=== PATIENT | male | born 1965 | race African-American/Black ===

== ENCOUNTER 2020-01-06 09:42 | Emergency (ER) | payer BC, SELFPAY ==
[2020-01-06 09:52] VITALS: BP 153/82; PULSE 80; RESP 16; TEMP 36.8; O2SAT 98
--- NOTE | 2020-01-06 10:11 | ED.URI ---
HPI - URI/Sore Throat General Chief Complaint: Upper Respiratory Infection Stated Complaint: Sore Throat/Ear pain/Phlegm Time Seen by Provider: 01/06/20 10:11 Source: patient and RN notes reviewed Mode of arrival: ambulatory Limitations: no limitations History of Present Illness HPI Narrative: 54-year-old male [facility] complaints of sore throat,fullness to his ears, sinus congestion and pressure, cough for the past 2 weeks. Patient states that he initially though it was allergies, patient has been taking Zyrtec, Flonase and singulair but no improvement. Patient states that he initially had some low grade fevers but denies any fever in the past few days. Patient states that his throat has progressively increased in soreness, he is coughing up a lot of white thick mucous. Patient denies any shortness of breath or any wheezing, lungs clear to auscultation, SAO2 98% on room air. MD elicited complaint: cough, sore throat, rhinorrhea, nasal congestion, sinus pain (pressure with headache frontal) and other (ears feel full) Pertinent past history: seasonal allergies and other Onset (ago): week(s) (2) Consistency: constant and progressively worsening (sore throat) Severity: moderate Pain scale (0-10): 5 Description of mucous: clear and other (thick) Able to tolerate fluids by mouth: Yes Exacerbating factors: swallowing, leaning forward and other (zyrtec, singulair, tylenol) Relieving factors: nothing Associated symptoms: headache, rhinorrhea, nasal congestion and sore throat Treatments prior to arrival: other (flonase, zyrtec, singulair) Related Data Home Medications Medication Instructions Recorded Confirmed Ambien 10 mg HS PRN 11/03/19 12/10/19 amlodipine 10 mg DAILY 11/03/19 12/10/19 pravastatin 40 mg DAILY 11/03/19 12/10/19 montelukast 10 mg PO DAILY 01/06/20 01/06/20 pravastatin 40 mg PO DAILY 01/06/20 01/06/20 Allergies Allergy/AdvReac Type Severity Reaction Status Date / Time MORTEZA Inhibitors Allergy Mild Cough Verified 01/06/20 09:59 [email or web address] Allergy Mild Swelling Verified 01/06/20 09:59 Review of Systems Review of Systems: Narrative: CONSTITUTIONAL: reports some initial low grade fevers none presently fever, no chills, or sweats. EYES: Denies visual changes, redness, or discharge. ENT: positive rhinorrhea, congestion,positive sore throat, fullness to ears CARDIOVASCULAR: Denies chest pain, palpitations, or edema. RESPIRATORY: Positive cough denies dyspnea. GASTROINTESTINAL: Denies abdominal pain, nausea, vomiting, or diarrhea. GENITOURINARY: Denies dysuria or hematuria. SKIN: Denies rash or itching. MUSCULOSKELETAL: Denies back pain, joint pain, or myalgia. NEUROLOGIC: positive headache, numbness, or weakness. PSYCHIATRIC: Denies anxiety or depression. All systems reviewed & are unremarkable except as noted in HPI and below PMFSH Past Medical History Medical History (Updated 01/13/20 @ 08:20 by Cynthia Caputo NP) HTN (hypertension) Hyperlipidemia Insomnia Seasonal allergies Family History Family History Mother Patient's mother is in good health Social History Social History Smoking status: Never smoker Alcohol intake: never Substance use: never Substance use type: does not use Gender identity (if verbalized by the patient): Male Comments At time of signature, agree with nursing past medical, social history. There is no relevant family history pertinent to the presenting complaint Exam Narrative: Exam Narrative: GENERAL: Well-appearing, well-nourished, and in no acute distress. HEAD: Normocephalic, atraumatic. EYES: PERRLA and EOMI. ENT: Nares red clear rhinorrhea no epistaxis. Mucous membranes moist.TM's normal with dull light reflex, throat red with no lesions or tonsil swelling, post nasal drainage present NECK: Supple.no lymphadenopathy CHEST: Clear to auscultat
== END 2020-01-06 10:38 | disposition home or self-care (01) ==
PROVIDERS: Emergency Provider Registered Nurse; PCP Family Medicine
DX: J01.10 Acute frontal sinusitis, unspecified (principal); J02.9 Acute pharyngitis, unspecified; I10 Essential (primary) hypertension
CPT/HCPCS: 87081; 87880; 99213; G0463

== ENCOUNTER 2020-10-30 13:11 | Emergency (ER) | payer BC, SELFPAY ==
[2020-10-30 13:21] VITALS: BP 146/77; PULSE 74; RESP 18; TEMP 36.4; O2SAT 98
--- NOTE | 2020-10-30 13:25 | ED.GENADULT ---
HPI - General Adult General Chief complaint: Ear Stated complaint: ear ache Time Seen by Provider: 10/30/20 13:25 Source: patient Mode of arrival: ambulatory Limitations: no limitations History of Present Illness HPI narrative: 55-year-old male patient presents to the [facility] with complaints of bilateral ear fullness and ringing for the past 2 to 3 days. Patient states that he popped his ears the other day and since then has been having a little been ringing feels like his ears are full. Denies any pain. Denies any discharge coming from the ears. Denies any stuffy nose, runny nose. Denies any fevers, body aches or chills. Related Data Allergies Allergy/AdvReac Type Severity Reaction Status Date / Time MORTEZA Inhibitors Allergy Mild Cough Verified 08/31/20 09:35 [email or web address] Allergy Mild Swelling Verified 08/31/20 09:35 Review of Systems Review of Systems: Narrative: CONSTITUTIONAL: Denies fever, chills, or sweats. EYES: Denies visual changes, redness, or discharge. ENT: Denies rhinorrhea, congestion, sore throat, positive bilateral otalgia. CARDIOVASCULAR: Denies chest pain, palpitations, or edema. RESPIRATORY: Denies cough or dyspnea. GASTROINTESTINAL: Denies abdominal pain, nausea, vomiting, or diarrhea. GENITOURINARY: Denies dysuria or hematuria. SKIN: Denies rash or itching. MUSCULOSKELETAL: Denies back pain, joint pain, or myalgia. NEUROLOGIC: Denies headache, numbness, or weakness. PSYCHIATRIC: Denies anxiety or depression. [facility] Past Medical History Medical History Allergic rhinitis HTN (hypertension) Hyperlipidemia Insomnia Seasonal allergies Family History Family History Mother Patient's mother is in good health Social History Social History Smoking status: Never smoker Alcohol intake: never Substance use: never Substance use type: does not use Gender identity (if verbalized by the patient): Male Comments At the time of my signature I agree with nursing past medical history, surgical, social, and family history. There is no relevant family history pertinent to the presenting complaint. Exam Narrative: Exam Narrative: GENERAL: Well-appearing, well-nourished, and in no acute distress. HEAD: Normocephalic, atraumatic. EYES: PERRLA and EOMI. ENT: Nares clear, no rhinorrhea or epistaxis. Mucous membranes moist. Bilateral TMs do appear slightly cloudy and possibly some fluid behind them. The bilateral canals are clear no erythema or foreign bodies in the canal. Posterior pharynx with no erythema, tonsillectomy, exudates or lesions present. NECK: Supple. No lymphadenopathy CHEST: Clear to auscultation. No respiratory distress. HEART: Regular rate and rhythm. No murmur heard. Normal peripheral pulses. ABDOMEN: Soft, nontender, nondistended, normal active bowel sounds. EXTREMITIES: Normal range of motion. No edema. SKIN: Warm, dry, no rash. NEURO: No focal deficits. Alert and oriented x3. Course Vital Signs Vital signs: Vital Signs Temperature 36.4 C L 10/30/20 13:21 Pulse Rate 74 10/30/20 13:21 Respiratory Rate 18 10/30/20 13:21 Blood Pressure 146/77 H 10/30/20 13:21 Pulse Oximetry 98 10/30/20 13:21 Temperature 36.4 C L 10/30/20 13:21 Pulse Rate 74 10/30/20 13:21 Respiratory Rate 18 10/30/20 13:21 Blood Pressure 146/77 H 10/30/20 13:21 Pulse Oximetry 98 10/30/20 13:21 Vital signs reviewed. The patient has been informed that they may have pre-hypertension or Hypertension based on a BP reading in the department. I recommend that the patient call the primary care provider listed on their discharge instructions or a physician of their choice this week to arrange follow up for further evaluation of possible pre-hypertension or Hypertension Medical Decision Making Differential Diagnosis Differential Di
== END 2020-10-30 13:34 | disposition home or self-care (01) ==
PROVIDERS: Emergency Provider Nurse Practitioner Family; PCP Family Medicine
DX: H73.893 Other specified disorders of tympanic membrane, bilateral (principal); I10 Essential (primary) hypertension; E78.5 Hyperlipidemia, unspecified
CPT/HCPCS: 99213; G0463

== ENCOUNTER 2021-07-25 00:27 | Day surgery (SDC) | payer BC, SELFPAY ==
[2021-07-13 13:58] VITALS: BMI 39.3
--- NOTE | 2021-07-24 16:34 | PM.HPGS ---
History of Present Illness History of Present Illness Consent: Risks, benefits, and alternatives have been discussed and questions answered. Patient agrees to proceed with procedure. Chief complaint: neoplasm screening Z12.11 Narrative: this is a 56-year-old male referred for colon cancer screening. his last colonoscopy was 10 years ago Review of Systems Review of Systems: All systems reviewed & are unremarkable except as noted in HPI and below PMFSH Past Medical History Medical History Allergic rhinitis HTN (hypertension) Hyperlipidemia Insomnia Seasonal allergies Family History Family History Mother Patient's mother is in good health Social History Social History Smoking status: Never smoker Second hand tobacco smoke exposure: No Alcohol intake: never Substance use: never Substance use type: does not use Living arrangements: alone Gender identity (if verbalized by the patient): Male Spiritual care concerns: No Meds Home Medications and Allergies Home Medications Medication Instructions Recorded Confirmed Type aspirin 81 mg tablet,delayed 81 mg PO DAILY #30 tablet 01/27/20 07/25/21 Rx release triamcinolone acetonide 0.1 % 1 applic TOPICAL DAILY PRN #80 g 08/31/20 07/25/21 Rx topical ointment pravastatin 40 mg tablet 40 mg PO DAILY #90 tablet 02/12/21 07/25/21 Rx amlodipine 10 mg tablet 10 mg PO DAILY #90 tablet 04/20/21 07/13/21 Rx zolpidem 10 mg tablet 10 mg PO .qhs #90 tablet 06/08/21 07/25/21 Rx losartan 50 mg tablet 50 mg PO DAILY #90 tablet 07/05/21 07/13/21 Rx cetirizine [Zyrtec] 10 mg PO DAILY PRN 07/13/21 07/25/21 History Allergies Allergy/AdvReac Type Severity Reaction Status Date / Time MORTEZA Inhibitors Allergy Mild Cough Verified 07/25/21 09:18 Exam Resp: Auscultation: clear to auscultation bilaterally Cardio: Rate: regular rate Rhythm: regular rhythm GI: GI Palp: Yes Soft to palpation and No Tenderness to palpation present (GI) Assessment and Plan Assessment and plan (1) Colon cancer screening: Code(s): Z12.11 - Encounter for screening for malignant neoplasm of colon Status: Acute Assessment and Plan: Colonoscopy with possible biopsy or polypectomy or cautery or injection of substances.
[2021-07-25 09:20] VITALS: BP 161/89; PULSE 73; RESP 18; TEMP 36.4; O2SAT 100; BMI 40.4
[2021-07-25] MEDS: LACTATED RINGERS 1,000 ML 150 ML IV CONT (09:30)
--- NOTE | 2021-07-25 09:32 | WPDANESEPPF ---
Anes - Initial Pre Proc Eval Procedure: Operation Date: 07/25/21 10:00 Proposed Procedures p Screening Colonoscopy - Bert Guardado MD Date/Time: 07/25/21 09:32 Surgeon: Bert Guardado MD Pre Op Diagnosis: neoplasm screening Z12.11 Patient Data Age: 56 Gender: M Height: 1.8 m Weight: 131.4 kg Last Vital Signs Temp 36.4 C L 07/25/21 09:20 Pulse 73 07/25/21 09:20 Resp 18 07/25/21 09:20 BP 161/89 H 07/25/21 09:20 Pulse Ox 100 07/25/21 09:20 Allergies Allergy/AdvReac Type Severity Reaction Status Date / Time MORTEZA Inhibitors Allergy Mild Cough Verified 07/25/21 09:18 Home Medications Medication Instructions Recorded Confirmed Type aspirin 81 mg tablet,delayed 81 mg PO DAILY #30 tablet 01/27/20 07/25/21 Rx release triamcinolone acetonide 0.1 % 1 applic TOPICAL DAILY PRN #80 g 08/31/20 07/25/21 Rx topical ointment pravastatin 40 mg tablet 40 mg PO DAILY #90 tablet 02/12/21 07/25/21 Rx amlodipine 10 mg tablet 10 mg PO DAILY #90 tablet 04/20/21 07/13/21 Rx zolpidem 10 mg tablet 10 mg PO .qhs #90 tablet 06/08/21 07/25/21 Rx losartan 50 mg tablet 50 mg PO DAILY #90 tablet 07/05/21 07/13/21 Rx cetirizine [Zyrtec] 10 mg PO DAILY PRN 07/13/21 07/25/21 History Patient hx anesthesia problems: none Family hx anesthesia problems: none PMFSH Past Medical History Medical History Allergic rhinitis HTN (hypertension) Hyperlipidemia Insomnia Seasonal allergies Family History Family History Mother Patient's mother is in good health Social History Social History Smoking status: Never smoker Second hand tobacco smoke exposure: No Alcohol intake: never Substance use: never Substance use type: does not use Living arrangements: alone Gender identity (if verbalized by the patient): Male Spiritual care concerns: No Anes - Eval Final PreProcedure Day of Procedure 07/25/21 09:32 Patient weight: morbidly obese Heart: regular rate and rhythm Lungs: clear to auscultation Airway: Mallampati scale class II Neurological: alert and oriented Last oral intake: >/= 8 hours ASA classification: III Emergent: no Anesthetic plan: proceed Anesthesia type and monitoring: general GIVS and standard monitoring Informed Consent: The patient's anesthetic plan and its attendant risks and benefits were discussed with the patient/family/POA. Questions were solicited and answers provided to the satisfaction of the patient/family/POA.
[2021-07-25 10:12] VITALS: BP 112/65; PULSE 69; RESP 29; O2SAT 100
[2021-07-25 10:22] VITALS: BP 111/73; PULSE 70; RESP 22; O2SAT 98
[2021-07-25 10:32] VITALS: BP 124/77; PULSE 70; RESP 22; O2SAT 100
== END 2021-07-25 10:40 | disposition home or self-care (01) ==
PROVIDERS: PCP Family Medicine; Visit Provider Internal Medicine Gastroenterology
PROC: 0DJD8ZZ Inspection of Lower Intestinal Tract, Via Natural or Artificial Opening Endoscopic (ICD-10-PCS; CPT 45378; principal; 2021-07-25 10:00)
DX: Z12.11 Encounter for screening for malignant neoplasm of colon (principal); I10 Essential (primary) hypertension; E78.5 Hyperlipidemia, unspecified; Z79.82 Long term (current) use of aspirin; E66.01 Morbid (severe) obesity due to excess calories; Z68.41 Body mass index [BMI] 40.0-44.9, adult
CPT/HCPCS: 45378; J2704; J7120

== ENCOUNTER 2023-09-09 00:17 | Emergency (ER) | payer BC, OTHER, SELFPAY ==
[2023-09-09 00:22] VITALS: BP 186/90; PULSE 104; RESP 16; TEMP 37.2; O2SAT 98
[2023-09-09] MEDS: methylPREDNISolone SOD SUCC 125 MG VIAL IV PUSH (00:53)
[2023-09-09] MEDS: FAMOTIDINE 20 MG/2 ML VIAL IV PUSH (00:53)
[2023-09-09] MEDS: diphenhydrAMINE HCl INJ 50 MG/ML VIAL IV PUSH (00:54)
--- NOTE | 2023-09-09 01:00 | ED.GENADULT ---
HPI - General Adult General Chief complaint: Allergic Reaction Stated complaint: allergic reaction, throat swelling Time Seen by Provider: 09/09/23 00:42 History of Present Illness HPI narrative: Patient is a 58-year-old gentleman who presents the emergency department with chief complaint of throat swelling. Patient reports for several days has had a feeling as though his normal bit of congestion patient states this evening he noticed a swelling sensation in the back of his throat patient reports he is not on an MORTEZA inhibitor does report that he has itching present on his feet. Related Data Home Medications Medication Instructions Recorded Confirmed cetirizine 10 mg tablet (Zyrtec) 10 mg PO DAILY PRN Allergic 07/13/21 02/27/23 Symptoms Allergies Allergy/AdvReac Type Severity Reaction Status Date / Time MORTEZA Inhibitors Allergy Mild Cough Verified 02/27/23 08:50 Review of Systems Review of Systems: A 10 system review of systems was completed on the patient and is negative except for what is stated in the HPI. Nursing and ancillary documentation was reviewed. [facility] Past Medical History Medical History Allergic rhinitis HTN (hypertension) Hyperlipidemia Insomnia Seasonal allergies Family History Family History Mother Patient's mother is in good health Social History Social History Smoking status: Never smoker Second hand tobacco smoke exposure: No Alcohol intake: never Substance use: never Substance use type: does not use Living arrangements: with family Occupation/Education: occupation Gender identity (if verbalized by the patient): Male Sexual Orientation (if Verbalized by the Patient): Straight or Heterosexual Spiritual care concerns: No Exam Narrative: GENERAL: Well-appearing, well-nourished, and in no acute distress. HEAD: Normocephalic, atraumatic. EYES: PERRLA and EOMI. ENT: Nares clear, no rhinorrhea or epistaxis. Mucous membranes moist. No stridor no angioedema NECK: Supple. CHEST: Clear to auscultation. No respiratory distress. No wheezing HEART: Regular rate and rhythm. No murmur heard. Normal peripheral pulses. ABDOMEN: Soft, nontender, nondistended, normal active bowel sounds. EXTREMITIES: Normal range of motion. No edema. SKIN: Warm, dry, no rash. No urticaria NEURO: No focal deficits. Alert and oriented x3. PSYCH: Normal mood and affect. Course Vital Signs Vital signs: Vital Signs Temperature 37.2 C 09/09/23 00:22 Pulse Rate 104 H 09/09/23 00:22 Respiratory Rate 16 09/09/23 00:22 Blood Pressure 186/90 H 09/09/23 00:22 Pulse Oximetry 98 09/09/23 00:22 Oxygen Delivery Room Air 09/09/23 00:22 Temperature 37.2 C 09/09/23 00:22 Pulse Rate 104 H 09/09/23 00:22 Respiratory Rate 16 09/09/23 00:22 Blood Pressure 186/90 H 09/09/23 00:22 Pulse Oximetry 98 09/09/23 00:22 Oxygen Delivery Room Air 09/09/23 00:22 Medical Decision Making Vital Signs Vital Signs: Vital Signs Temperature 37.2 C 09/09/23 00:22 Pulse Rate 104 H 09/09/23 00:22 Respiratory Rate 16 09/09/23 00:22 Blood Pressure 186/90 H 09/09/23 00:22 Pulse Oximetry 98 09/09/23 00:22 Oxygen Delivery Room Air 09/09/23 00:22 Temperature 37.2 C 09/09/23 00:22 Pulse Rate 104 H 09/09/23 00:22 Respiratory Rate 16 09/09/23 00:22 Blood Pressure 186/90 H 09/09/23 00:22 Pulse Oximetry 98 09/09/23 00:22 Oxygen Delivery Room Air 09/09/23 00:22 Discharge Plan Discharge Clinical Impression: Allergic reaction Patient Disposition: Home, Self-Care Condition: Stable Instructions: Antibiotic Form, Allergies (ED) Prescriptions: New prednisone 20 mg tablet 40 mg PO DAILY 5 Days Qty: 10 0RF No Action triamc
[2023-09-09 02:29] VITALS: BP 174/86; PULSE 92; RESP 15; O2SAT 99
== END 2023-09-09 02:29 | disposition home or self-care (01) ==
PROVIDERS: Emergency Provider Emergency Medicine; PCP Family Medicine
DX: T78.40XA Allergy, unspecified, initial encounter (principal); I10 Essential (primary) hypertension; E78.5 Hyperlipidemia, unspecified; X58.XXXA Exposure to other specified factors, initial encounter
CPT/HCPCS: 96374; 96375; 99284; J1200; J2930

== ENCOUNTER 2023-09-15 01:44 | Emergency (ER) | payer BC, SELFPAY ==
[2023-09-15] VITALS (24 sets, daily range): BP systolic 134–203; BP diastolic 76–118; PULSE 65–86; RESP 17–24; TEMP 36.4; O2SAT 94–100
--- NOTE | ~2023-09-15 | XR_ITS ---
EXAMINATION: XR chest 1V portable DATE: 09/15/2023 04:12 INDICATION: Chest pain. TECHNIQUE: A single frontal view of the chest was obtained. COMPARISON: Chest 2 views 01/06/2018, CT abdomen and pelvis 02/09/2015 FINDINGS: There is marked in elevation of right hemidiaphragm. There is mild atelectasis at right gladys g base. No pleural effusion or pneumothorax. Cardiomegaly is noted. IMPRESSION: 1. New marked elevation of right hemidiaphragm with mild atelectasis at right lung base. 2. Cardiomegaly. Reviewed, dictated and finalized at location E. IMPRESSION: 1. New marked elevation of right hemidiaphragm with mild atelectasis at right l elio base. 2. Cardiomegaly.
--- NOTE | 2023-09-15 03:10 | PC.NURSE ---
Pt reports that he ate dinner at approx 1845 ([employer]) and started feeling like he got something suck in throat/upper chest. States now it feels more like his throat is swelling like his allergic reaction last week. States that he also feels like his L foot is swollen. Pt reports he is unsure what may be causing his allergic reaction, but states he did also eat [employer] last week prior to having to come into ED. Pt at this time is able to maintain own airway and swallowing secretions without difficulty. Reports taking a Claritin prior to coming to ED.
--- NOTE | 2023-09-15 03:25 | ECG_ITS ---
Measurements Intervals [place] Rate: 67 P: -4 NM: 120 QRS: -5 QRSD: 85 T: 93 QT: 400 QTc: 424 Interpretive Statements SINUS RHYTHM WITH SINUS ARRHYTHMIA NONSPECIFIC T-WAVE ABNORMALITY ABNORMAL ECG NO PREVIOUS ECG AVAILABLE FOR COMPARISON Electronically Signed On 09-15-2023 8:51:58 CDT by Stepan Sotelo M.D.
--- NOTE | 2023-09-15 03:27 | ED.GENADULT ---
HPI - General Adult General Chief complaint: Unspecified Stated complaint: something in my throat , left foot swelling Time Seen by Provider: 09/15/23 02:49 History of Present Illness HPI narrative: Patient presents to the emergency department with a sensation of being unable to swallow, a tickling in his throat and left foot itching that started prior to arrival. He also had chest discomfort at that time. Symptoms started after he ate [employer]. He had similar symptoms without the chest discomfort last week when he also had [employer]. He was in the emergency department and diagnosed with an allergic reaction. Discharged to home with steroids and Benadryl. He has finished his steroids and symptoms have now returned. Patient's only complaint now is left foot itching. He states left foot is swollen after having itched Related Data Home Medications Medication Instructions Recorded Confirmed cetirizine 10 mg tablet (Zyrtec) 10 mg PO DAILY PRN Allergic 07/13/21 02/27/23 Symptoms Allergies Allergy/AdvReac Type Severity Reaction Status Date / Time MORTEZA Inhibitors Allergy Mild Cough Verified 09/15/23 01:53 Review of Systems Review of Systems: Review of systems negative except what is documented in the [facility] Past Medical History Medical History Allergic rhinitis HTN (hypertension) Hyperlipidemia Insomnia Seasonal allergies Family History Family History Mother Patient's mother is in good health Social History Social History Smoking status: Never smoker Second hand tobacco smoke exposure: No Alcohol intake: never Substance use: never Substance use type: does not use Living arrangements: with family Occupation/Education: occupation Gender identity (if verbalized by the patient): Male Sexual Orientation (if Verbalized by the Patient): Straight or Heterosexual Spiritual care concerns: No Exam Narrative: GENERAL: Well-appearing, well-nourished, and in no acute distress. HEAD: Normocephalic, atraumatic. EYES: PERRLA and EOMI. ENT: Nares clear, no rhinorrhea or epistaxis. Mucous membranes moist. NECK: Supple. CHEST: Clear to auscultation. No respiratory distress. HEART: Regular rate and rhythm. ABDOMEN: Soft, nontender, nondistended. EXTREMITIES: Normal range of motion. No edema. Mild left foot swelling and irritation SKIN: Warm, dry, no rash. NEURO: No focal deficits. Alert and oriented x3. PSYCH: Normal mood and affect. Course Vital Signs Vital signs: Vital Signs Temperature 36.4 C 09/15/23 01:48 Pulse Rate 74 09/15/23 01:48 Respiratory Rate 20 09/15/23 01:48 Blood Pressure 179/94 H 09/15/23 01:48 Pulse Oximetry 100 09/15/23 01:48 Oxygen Delivery Room Air 09/15/23 01:48 Temperature 36.4 C 09/15/23 01:48 Pulse Rate 80 09/15/23 03:13 Respiratory Rate 19 09/15/23 03:02 Blood Pressure 172/94 H 09/15/23 03:02 Pulse Oximetry 94 09/15/23 03:02 Oxygen Delivery Room Air 09/15/23 01:48 Medical Decision Making Vital Signs Vital Signs: Vital Signs Temperature 36.4 C 09/15/23 01:48 Pulse Rate 74 09/15/23 01:48 Respiratory Rate 20 09/15/23 01:48 Blood Pressure 179/94 H 09/15/23 01:48 Pulse Oximetry 100 09/15/23 01:48 Oxygen Delivery Room Air 09/15/23 01:48 Temperature 36.4 C 09/15/23 01:48 Pulse Rate 80 09/15/23 03:13 Respiratory Rate 19 09/15/23 03:02 Blood Pressure 172/94 H 09/15/23 03:02 Pulse Oximetry 94 09/15/23 03:02 Oxygen Delivery Room Air 09/15/23 01:48 Discharge Plan Discharge Clinical Impression: Chest pain, Allergic reaction Patient Disposition: Home, Self-Care Condition: Stable Instructions: Antibiotic Form Prescriptions: No Action triamcinolone acetonide 0.
[2023-09-15 04:07] LABS: Basophils Percent Auto 0.3 % (0.2-1.2); Eosinophils Absolute Auto 0.2 K/mm3 (0-0.3); Eosinophils Percent Auto 2.2 % (0-4.4); Hematocrit 49.8 % (42.0-52.0); Hemoglobin 14.9 g/dL (14.0-18.0); Immature Granulocyte Absolute 0.03 K/mm3 (0.00-0.031); Immature Granulocyte Percent A 0.4 % (0-0.5); Lymphocytes Absolute Auto 1.45 K/mm3 (0.9-3.2); Lymphocytes Percent Auto 20.2 % (18.3-44.2); Mean Corpuscular HGB Conc 29.9 g/dl (32-36); Mean Corpuscular Hemoglobin 26.3 pg (26-34); Mean Platelet Volume 9.8 fl (7.4-10.4); Monocytes Absolute Auto 0.6 K/mm3 (0.1-0.6); Monocytes Percent Auto 8.2 % (2.6-8.5); Neutrophils Absolute Auto 4.9 K/mm3 (1.3-6.7); Neutrophils Percent Auto 68.7 % (45.5-73.1); Platelet Count Result 294 k/mm3 (150-375); Red Blood Count 5.66 M/mm3 (4.6-6.20); Red Cell Distribution Width 14.3 % (11.5-14.5); White Blood Count 7.2 K/mm3 (4.5-10.0)
[2023-09-15 04:20] LABS: Alanine Aminotransferase 32 U/L (6-50); Alkaline Phosphatase 105 U/L (38-126); Anion Gap 5 mmol/L (8-16); Aspartate Amino Transferase 37 U/L (17-59); Bilirubin,Total 0.6 mg/dL (0.2-1.3); Blood Urea Nitrogen 16 mg/dL (9-20); Calcium 8.9 mg/dL (8.4-10.2); Carbon Dioxide 32 mmol/L (22-30); Chloride 99 mmol/L (98-107); Estimated CRCL calculation 135 ml/min; Estimated Glomerular Filt Rate > 60; Glucose 133 mg/dL (65-110); Potassium 4.1 mmol/L (3.4-5.0); Sodium 136 mmol/L (137-145)
[2023-09-15 04:31] LABS: Troponin I < 0.012 ng/mL (0.000-0.034)
[2023-09-15 07:07] LABS: Troponin I < 0.012 ng/mL (0.000-0.034)
--- NOTE | 2023-09-15 07:08 | PC.NURSE ---
Report to Virginie RN
--- NOTE | 2023-09-15 07:16 | ED.GENADULT ---
HPI - General Adult General Chief complaint: Unspecified Stated complaint: something in my throat , left foot swelling Time Seen by Provider: 09/15/23 02:49 Related Data Home Medications Medication Instructions Recorded Confirmed cetirizine 10 mg tablet (Zyrtec) 10 mg PO DAILY PRN Allergic 07/13/21 02/27/23 Symptoms Allergies Allergy/AdvReac Type Severity Reaction Status Date / Time MORTEZA Inhibitors Allergy Mild Cough Verified 09/15/23 01:53 PMFSH Past Medical History Medical History Allergic rhinitis HTN (hypertension) Hyperlipidemia Insomnia Seasonal allergies Family History Family History Mother Patient's mother is in good health Social History Social History Smoking status: Never smoker Second hand tobacco smoke exposure: No Alcohol intake: never Substance use: never Substance use type: does not use Living arrangements: with family Occupation/Education: occupation Gender identity (if verbalized by the patient): Male Sexual Orientation (if Verbalized by the Patient): Straight or Heterosexual Spiritual care concerns: No Course Vital Signs Vital signs: Vital Signs Temperature 36.4 C 09/15/23 01:48 Pulse Rate 74 09/15/23 01:48 Respiratory Rate 20 09/15/23 01:48 Blood Pressure 179/94 H 09/15/23 01:48 Pulse Oximetry 100 09/15/23 01:48 Oxygen Delivery Room Air 09/15/23 01:48 Temperature 36.4 C 09/15/23 01:48 Pulse Rate 70 09/15/23 07:11 Respiratory Rate 19 09/15/23 07:11 Blood Pressure 144/89 H 09/15/23 07:11 Pulse Oximetry 100 09/15/23 07:11 Oxygen Delivery Room Air 09/15/23 01:48 Medical Decision Making Vital Signs Vital Signs: Vital Signs Temperature 36.4 C 09/15/23 01:48 Pulse Rate 74 09/15/23 01:48 Respiratory Rate 20 09/15/23 01:48 Blood Pressure 179/94 H 09/15/23 01:48 Pulse Oximetry 100 09/15/23 01:48 Oxygen Delivery Room Air 09/15/23 01:48 Temperature 36.4 C 09/15/23 01:48 Pulse Rate 70 09/15/23 07:11 Respiratory Rate 19 09/15/23 07:11 Blood Pressure 144/89 H 09/15/23 07:11 Pulse Oximetry 100 09/15/23 07:11 Oxygen Delivery Room Air 09/15/23 01:48 Lab Data 09/15/23 03:59 09/15/23 03:59 Labs: Lab Results 09/15/23 09/15/23 Range/Units 03:59 06:38 WBC 7.2 (4.5-10.0) K/mm3 RBC 5.66 (4.6-6.20) M/mm3 Hgb 14.9 (14.0-18.0) g/dL Hct 49.8 (42.0-52.0) % MCV 88.0 (80-100) fl MCH 26.3 (26-34) pg MCHC 29.9 L (32-36) g/dl RDW 14.3 (11.5-14.5) % Plt Count 294 (150-375) k/mm3 MPV 9.8 (7.4-10.4) fl Immature Gran % (Auto) 0.4 (0-0.5) % Neut % (Auto) 68.7 (45.5-73.1) % Lymph % (Auto) 20.2 (18.3-44.2) % [place] % (Auto) 8.2 (2.6-8.5) % Eos % (Auto) 2.2 (0-4.4) % Baso % (Auto) 0.3 (0.2-1.2) % Lymph # (Auto) 1.45 (0.9-3.2) K/mm3 [place] # (Auto) 0.6 (0.1-0.6) K/mm3 Eos # (Auto) 0.2 (0-0.3) K/mm3 Baso # (Auto) 0.0 (0.0-0.1) K/mm3 Abs Immat Gran (auto) 0.03 (0.00-0.031) K/mm3 Absolute Neuts (auto) 4.9 (1.3-6.7) K/mm3 Absolute Nucleated RBC 0.0 (0.0-0.012) K/mm3 Nucleated RBC % 0.0 (0.0-0.2) % Sodium 136 L (137-145) mmol/L Potassium 4.1 (3.4-5.0) mmol/L Chloride 99 (98-107) mmol/L Carbon Dioxide 32 H (22-30) mmol/L Anion Gap 5 L (8-16) mmol/L BUN 16 (9-20) mg/dL Creatinine 0.70 (0.7-1.3) mg/dL Estim Creat Clear Calc 135 ml/min Estimated GFR > 60 (59 - ) Glucose 133 H (65-110) mg/dL Calcium 8.9 (8.4-10.2) mg/dL Total Bilirubin 0.6 (0.2-1.3) mg/dL AST 37 (17-59) U/L ALT 32 (6-50) U/L Alkaline Phosphatase 105 (38-126) U/L Troponin I < 0.012 < 0.012 (0.000-0.034) ng/mL Total Protein 8.0 (6.3-8.2) g/dL Albumin 4.0
== END 2023-09-15 07:45 | disposition home or self-care (01) ==
PROVIDERS: Emergency Provider Emergency Medicine; PCP Family Medicine
DX: R07.9 Chest pain, unspecified (principal); T78.40XA Allergy, unspecified, initial encounter; I10 Essential (primary) hypertension; E78.5 Hyperlipidemia, unspecified; G47.00 Insomnia, unspecified; Z79.85 Long-term (current) use of injectable non-insulin antidiabetic drugs; Z79.82 Long term (current) use of aspirin
CPT/HCPCS: 36415; 71045; 80053; 84484; 85025; 93005; 99284

== ENCOUNTER 2023-09-29 08:09 | Emergency (ER) | payer BC, OTHER, SELFPAY ==
[2023-09-29 08:19] VITALS: BP 179/91; PULSE 78; RESP 16; TEMP 37; O2SAT 99
--- NOTE | 2023-09-29 08:43 | ED.SKABFB ---
HPI - Skin/Abscess/Foreign Bdy General Chief complaint: Unspecified Stated complaint: lips swollen Time Seen by Provider: 09/29/23 08:31 Source: patient, RN notes reviewed and old records reviewed Mode of arrival: ambulatory Limitations: no limitations History of Present Illness HPI narrative: Patient presents today complaining of swelling to his lips that began at 11:00 p.m. last night. Yesterday at 9:00 a.m. he started with a scratchy throat. By last night his tongue and lips had started swelling and he administered an EpiPen to himself. He had also been taking 25 mg of Benadryl every 4 hours. He [address] his industrial court magistrate this morning who instructed him to come to urgent care. States the tongue swelling and scratchiness of the throat have resolved, but the lip swelling has persisted. He denies shortness of breath, difficulty swallowing. States the source of his allergic reactions recently have not been found, but blood work is pending with his industrial court magistrate. He is supposed to follow-up next month. Related Data Home Medications Medication Instructions Recorded Confirmed ofloxacin 0.3 % eye drops See Rx Instructions .Route .COMPLEX 09/29/23 09/29/23 Allergies Allergy/AdvReac Type Severity Reaction Status Date / Time MORTEZA Inhibitors Allergy Mild Cough Verified 09/29/23 08:21 Review of Systems Review of Systems: CONSTITUTIONAL: Denies body aches, fever, chills, or sweats. EYES: Denies visual changes, redness, or discharge. ENT: Denies rhinorrhea, congestion, sore throat, or otalgia.+ lip swelling CARDIOVASCULAR: Denies chest pain, palpitations, or edema. RESPIRATORY: Denies cough or dyspnea. GASTROINTESTINAL: Denies abdominal pain, nausea, vomiting, or diarrhea. GENITOURINARY: Denies dysuria or hematuria. SKIN: Denies rash, itching, or wounds. MUSCULOSKELETAL: Denies back pain, joint pain, or myalgia. NEUROLOGIC: Denies headache, numbness, tingling, or weakness. PSYCH: Denies depression or anxiety. [facility] Past Medical History Medical History Allergic rhinitis HTN (hypertension) Hyperlipidemia Insomnia Seasonal allergies Family History Family History Mother Patient's mother is in good health Social History Social History Smoking status: Never smoker Second hand tobacco smoke exposure: No Alcohol intake: never Substance use: never Substance use type: does not use Living arrangements: with family Occupation/Education: occupation Gender identity (if verbalized by the patient): Male Sexual Orientation (if Verbalized by the Patient): Straight or Heterosexual Spiritual care concerns: No Comments At time of signature, I have reviewed and agree with nursing past medical, surgical, social and family history unless otherwise noted. Please see nursing chart for further information. There is no relevant family history pertinent to the presenting complaint Exam Narrative: GENERAL: Well-appearing, well-nourished, and in no acute distress. HEAD: Normocephalic, atraumatic. EYES: EOMI. No redness or drainage. Conjunctivae normal. ENT: Mucous membranes pink and moist. Nares clear. No rhinorrhea. TMs normal bilaterally. Throat normal. Uvula midline. Moderate swelling of the upper and lower lips. Tongue is normal. NECK: Normal AROM. Supple. No lymphadenopathy. CHEST: No respiratory distress. Clear to auscultation. HEART: Regular rate and rhythm. No murmur appreciated. Normal peripheral pulses. EXTREMITIES: Normal range of motion. No edema. SKIN: Warm, dry, no rash. Capillary refill normal. Normal skin turgor. NEURO: No focal deficits. Alert and oriented x3. Gait steady. PSYCH: Normal affect. No signs of depression or anxiety. Course Course Emergency Course: RN attempted an IV in which to give medications, but
[2023-09-29] MEDS: diphenhydrAMINE HCl INJ 50 MG/ML VIAL IM (09:29)
== END 2023-09-29 09:55 | disposition home or self-care (01) ==
PROVIDERS: Emergency Provider Nurse Practitioner; PCP Family Medicine
DX: T78.3XXA Angioneurotic edema, initial encounter (principal); I10 Essential (primary) hypertension; E78.5 Hyperlipidemia, unspecified
CPT/HCPCS: 96372; 99214; G0463; J1100; J1200